=== PATIENT | female | born 1975 | race Caucasian/White ===

== ENCOUNTER 2016-09-04 11:15 | Emergency (ER) | payer MEDICAID ==
[~2016-09-04] VITALS: Ht 162.6 cm; Wt 59.0 kg
[2016-09-04] MEDS ORDERED: IBUP-1955 PO (11:23)
[2016-09-04 11:40] LABS: *BLOOD, URINE 2+ (NEGATIVE); *CLARITY,URINE TURBID (CLEAR); *COLOR,URINE AMBER (YELLOW); *KETONES,URINE 1+ (NEGATIVE); *UROBILINOGEN,URINE >=8.0 E.U./dl (NORMAL); LEUKOCYTE ESTERASE ,URINE 3+ (NEGATIVE)
[2016-09-04 11:45] LABS: *PROTEIN,URINE 3+ (NEGATIVE); UGLUCOSE 1+ (NEGATIVE)
[2016-09-04 11:46] LABS: *BILIRUBIN,URIN 2+ (NEGATIVE); NITRITE, URINE POSITIVE (NEGATIVE)
[2016-09-04 11:48] LABS: ICTOTEST POSITIVE (NEGATIVE)
[2016-09-04 11:49] LABS: *URINE HCG, QUAL NEGATIVE (NEGATIVE)
[2016-09-04 12:01] LABS: WBC,URINE 80-100 /HPF (0-3)
[2016-09-04 12:02] LABS: BACTERIA,URINE FEW /HPF (NONE SEEN); CALCIUM OXALATE CRYSTALS,UR FEW /HPF (NONE SEEN); SQUAMOUS EPITHELIAL CELL,UR FEW /HPF (NONE SEEN)
[2016-09-04] MEDS ORDERED: SULFAMETH/TRIMETH 800/160 MG TABLET PO ONE (12:15)
[2016-09-04] MEDS ORDERED: PHENAZOPYRIDINE HCL 100 MG TABLET PO ONE (12:15)
[2016-09-04] MEDS ORDERED: PHENAZOPYRIDINE HCL 100 MG TABLET ONE ×2 (12:17→12:20)
[2016-09-04] MEDS ORDERED: SULFAMETH/TRIMETH 800/160 MG TABLET ONE (12:17)
== END 2016-09-04 12:16 | disposition home or self-care (01) ==
LOC: ER 11:15
DX: N39.0 Urinary tract infection, site not specified (principal)
CPT/HCPCS: 84703; A4663